=== PATIENT | male | born 2000 | race Caucasian/White ===

== ENCOUNTER 2018-08-20 08:06 | Emergency (ER) | payer BC ==
[~2018-08-20] VITALS: Ht 188 cm; Wt 99.8 kg
[2018-08-20] MEDS ORDERED: CLINDAMYCIN-BEN25 GM TOP (08:20)
== END 2018-08-20 08:43 | disposition home or self-care (01) ==
LOC: ED 08:06
DX: S61.210A Laceration without foreign body of right index finger without damage to nail, initial encounter (principal); W26.8XXA Contact with other sharp object(s), not elsewhere classified, initial encounter; Z79.899 Other long term (current) drug therapy
CPT/HCPCS: 99282